=== PATIENT | male | born 1955 | race Caucasian/White ===

== ENCOUNTER → 2018-08-13 | Outpatient (CLI) | payer OTHER ==
[~2018-08-13] VITALS: Ht 177.8 cm; Wt 104.3 kg
[~2018-08-13] MED LIST: ACCUPRIL40 MG PO; ASPIR 8181 MG PO; ATORVASTATIN CA40 MG PO; CARDIZEM CD240 MG PO; HYDRALAZINE HC100 MG PO; METOPROLOL SUC100 MG PO; METOPROLOL TAR100 MG PO; MULTIVITAMINS PO; OMEGA 3-6-9 11200 M1 PO; POTASSIUM20 PO; PROAIR HFA8.5 GM INH; SORINE 80 MG TA80 M1 PO; TEKTURNA300 MG PO
--- NOTE | 2018-08-14 16:06 | PATH ---
[facility] [place] [address] PATHOLOGY RPT PROCEDURE Name: JALEN ADDISON Room #: REG [facility] M..#: [id number] ������������������ Admission: 08/13/18 ������������������ Date of : 57 Discharge: Report #: [id number] Path Case #: [id number] [facility] Accession Number: [id number] . 01 Material submitted: . PART A: BX POLYP AT ASCENDING COLON X3 PART B: BX POLYP AT DESCENDING COLON PART C: BX POLYP AT SIGMOID COLON PART D: BX POLYP AT RECTUM . 01 Clinical history: . History of polyps Colon polyps, rectal polyp, diverticulosis, external hemorrhoids . 02 Diagnosis: A. Polyp x3, at ascending colon, endoscopic biopsy: - Tubular adenoma identified in multiple fragments. - Negative for high-grade dysplasia. . B. Polyp, at descending colon, endoscopic biopsy: - Tubular adenoma. - Negative for high-grade dysplasia. . C. Polyp, at sigmoid colon, endoscopic biopsy: - Hyperplastic polyp. - Negative for dysplasia. . D. Polyp, at rectum, endoscopic biopsy: - Compatible with a hyperplastic polyp. - Negative for dysplasia. (IUV:bowen; 08/14/2018) QMS/08/14/2018 . 02 Electronically signed: . Sally Borrego MD, Pathologist NPI- [id number] . 01 Gross description: . A. The specimen is received in formalin, labeled "Addison, Jalen, BX polyp at ascending colon x3" and consists of 6 fragments of odell-brown tissue measuring 1.1 x 0.6 x 0.3 cm in aggregate which are entirely submitted in A1. . B. The specimen is received in formalin, labeled "Addison, Jalen, BX polyp at descending colon" and consists of 4 fragments of soft odell tissue measuring between 0.2 x 0.2 cm and 0.5 x 0.3 x 0.1 cm which are entirely submitted in B1. [address] [address] PATHOLOGY RPT PROCEDURE Name: JALEN ADDISON KALEB Room #: REG [facility].#: [id number] ������������������ Admission: 08/13/18 ������������������ Date of : 57 Discharge: Report #: [id number] Path Case #: [id number] . C. The specimen is received in formalin, labeled "Addison, Jalen, BX polyp at sigmoid" and consists of 2 fragments of pink-odell tissue measuring between 0.2 x 0.2 cm and 0.3 x 0.2 x 0.2 cm. They are entirely submitted in C1. . D. The specimen is received in formalin, labeled "Addison, Jalen, BX polyp at rectum" and consists of a fragment of addison-odell tissue measuring 0.3 x 0.2 x 0.1 cm which is entirely submitted in D1. (SDY; 08/13/2018) SYU/SYU . 02 Pathologist provided ICD-10: D12.2, D12.4, K63.5, K62.1 . 02 CPT . 434933, 471494, 005310, 240775 Specimen Comment: A courtesy copy of this report has been sent to Specimen Comment: [phone], . Specimen Comment: Report sent to / DR GUZMAN Performed at: [address], [place] [id number] MD Milton Yan MD Phone: [phone] Performed at: [address] [id number] MD Sally Borrego MD Phone: [phone]
--- NOTE | 2018-08-14 16:37 | P ---
[facility] [place] [place] [address] PROCEDURE REPORT Name: ANNA MARIE TRACY Room #: REG [facility]#: [id number] Admission: 08/13/18 ������������������ Attend Phys: Gerry Ordoñez Discharge: ������������������ Date of : 57 Report #: [id number] THIS REPORT FOR: //name// CC: ZEYNEP Engel DATE OF SERVICE: 08/13/2018 PROCEDURE PERFORMED: Colonoscopy with biopsies. HISTORY OF PRESENT ILLNESS: The patient is a 63-year-old male who presents today for routine followup with a history of colon polyps 5 years ago. He denies any symptoms. No family history of colon cancer. DESCRIPTION OF PROCEDURE: The risks and benefits of the procedure were explained to the patient, those risks including but not limited to bleeding, perforation, the risk of sedation. He understood these risks and gave informed consent. Sedation was given using propofol per anesthesia. Next, a digital rectal exam was initially performed, which showed small external hemorrhoids, otherwise normal. Next, using a standard Olympus colonoscope, the scope was placed in the patient's anus and advanced under direct vision to the cecum. The overall prep was excellent. The cecum and ileocecal valve were normal in appearance. A total of 3 polyps were noted in the ascending colon ranging from 3-4 mm in size. All were removed by cold forceps. The transverse colon was normal. In the descending colon, a 4-mm sessile polyp was removed by cold forceps. In the sigmoid colon, multiple diverticula were noted. No evidence of inflammation. Another 3 mm sessile polyp noted and removed with cold forceps. In the rectum, another 4 mm sessile polyp noted, removed with cold forceps. On retroflexion, no abnormalities were noted. The scope was then withdrawn and the procedure terminated. The patient tolerated the procedure well. IMPRESSION: 1. Multiple small colonic polyps as described above. 2. Sigmoid diverticulosis. 3. External hemorrhoids. 4. Otherwise, normal colonoscopy. RECOMMENDATIONS: 1. Await biopsy results. 2. Repeat colonoscopy in [address] [address] PROCEDURE REPORT Name: ANNA MARIE TRACY Room #: REG [facility]#: [id number] Admission: 08/13/18 ������������������ Attend Phys: Gerry Ordoñez Discharge: ������������������ Date of : 57 Report #: [id number] Thank you for allowing me to participate in his care. ��������������������������������������������� <ELECTRONICALLY SIGNED> ���������������������������������������� By: Gerry Engel MD ��������������������������������������������� 08/14/18 [id number] [id number] Gerry Engel MD /nt
== END | disposition home or self-care (01) ==
LOC: GI 07:42
DX: Z12.11 Encounter for screening for malignant neoplasm of colon (principal); Z86.010 Personal history of colon polyps; D12.2 Benign neoplasm of ascending colon; D12.4 Benign neoplasm of descending colon; K63.5 Polyp of colon; K62.1 Rectal polyp; K57.30 Diverticulosis of large intestine without perforation or abscess without bleeding; K64.4 Residual hemorrhoidal skin tags; I10 Essential (primary) hypertension; E78.00 Pure hypercholesterolemia, unspecified; J45.909 Unspecified asthma, uncomplicated; Z87.891 Personal history of nicotine dependence; Z98.890 Other specified postprocedural states; Z79.899 Other long term (current) drug therapy; Z85.828 Personal history of other malignant neoplasm of skin; Z88.0 Allergy status to penicillin; Z79.82 Long term (current) use of aspirin
CPT/HCPCS: 62110; 62900